=== PATIENT | male | born 1955 ===

== ENCOUNTER → 2017-10-17 15:37 | Outpatient (CLI) | payer OTHER, SELFPAY ==
[2017-10-19 14:56] LABS: PSA Free % 23 % (calc) (> 25); PSA, Total 4.6 ng/mL (< 4.1)
== END ==
PROVIDERS: PCP Family Medicine; Visit Provider Family Medicine
DX: R97.20 Elevated prostate specific antigen [PSA] (principal)
CPT/HCPCS: 36415; 84153; 84154

== ENCOUNTER → 2018-07-04 13:27 | Outpatient (CLI) | payer SELFPAY | PROVIDERS: Family Provider Family Medicine; PCP Family Medicine; Visit Provider Urology | DX: R97.20 Elevated prostate specific antigen [PSA] (principal) | CPT/HCPCS: 36415; 84153 ==

== ENCOUNTER 2019-04-07 06:46 | Day surgery (SDC) | payer OTHER, SELFPAY ==
[2019-04-01 13:19] VITALS: BMI 25.1
[2019-04-07] VITALS (8 sets, daily range): BP systolic 100–137; BP diastolic 61–83; PULSE 56–72; RESP 12–16; TEMP 36.2–36.6; O2SAT 96–99; BMI 24.2
[2019-04-07] MEDS: LACTATED RINGERS 1,000 ML 42 ML IV (07:27)
--- NOTE | 2019-04-07 07:45 | PM.HP.1 ---
History of Present Illness History of Present Illness Date Patient Seen: 04/07/19 Time Patient Seen: 07:46 Chief complaint: 00615 Narrative: Patient is a gentleman here for a pair of a left inguinal hernia Patient History Medical History Healthy adult (Acute) Surgical History Hx of hernia repair (Acute) Hx of knee surgery (Acute) Hx of rotator cuff surgery (Acute ~2013) Family & Social History Family History Mother Cancer Social History: household members spouse Tobacco & Substance use: Smoking Status Never smoker alcohol intake never Substance Use Type does not use Meds Home Medications and Allergies Home Medications Medication Instructions Recorded Confirmed Type No Known Home Medications 01/22/19 04/07/19 History Allergies Allergy/AdvReac Type Severity Reaction Status Date / Time Penicillins [PENICILLINS] Allergy Mild rash-25 Verified 04/07/19 07:27 years ago Review of Systems Review of Systems ROS Unobtainable: All systems reviewed & are unremarkable except as noted in HPI and below Exam Vital Signs (past 8 hours): - 04/07/19 07:10 Temperature 97.6 F Pulse Rate 60 Respiratory Rate 16 Blood Pressure 137/83 Pulse Oximetry 99 Oxygen Delivery Method Room Air Narrative Exam Narrative: No apparent distress. Lungs are clear heart regular rate and rhythm no murmur gallop abdomen is soft nontender without mass. Reducible left inguinal hernia. Assessment & Plan Assessment & Plan narrative: Will repair left inguinal hernia. Risks benefits have been discussed. He appears to understand wishes to proceed
--- NOTE | 2019-04-07 07:48 | PM.PREOP ---
Pre-operative Note Interval Note History & Physical reviewed/Exam performed by Physician: Yes Changes to H&P: No
[2019-04-07] MEDS: CLINDAMYCIN 900 MG/50 ML PIGGYBACK 50 MG IV (08:07)
--- NOTE | 2019-04-07 08:26 | SUR.OPER ---
Supine on padded OR bed, head on pillow, arms secured on padded arm boards at <90 degrees abduction, legs uncrossed with heels padded, safety belt at thigh.
[2019-04-07] MEDS: BUPIVACAINE 0.5% (PF) VIAL 30 ML INJ (08:38)
--- NOTE | 2019-04-07 09:35 | PM.OP.1 ---
Operative Date/Time/Diagnoses Date of procedure: 04/07/19 Time of procedure: 09:35 Pre-op diagnosis: Left inguinal hernia. Reducible. Post-op diagnosis: same (Indirect hernia which contained adhesed colon.) Procedure & Clinicians Procedure: Repair with plug and patch technique Same procedure as scheduled: Yes Indications: Symptomatic left inguinal hernia Surgeon: Tima Gaona Click Yes if Unassisted: Yes Anesthesia Type: General Operative Notes Findings: Indirect hernia Closure Type: primary Specimen(s): none sent Prosthetic devices, grafts, tissues, transplants, or devices: Mesh Estimated Blood Loss (mL): 5 Blood products transfused: none Procedure in detail: The patient was placed supine on the operating room table and underwent general LMA anesthesia. He was prepped and draped in the usual fashion. A transverse incision was made overlying the internal ring and carried down to the level of the external oblique. The external oblique was opened parallel with its fibers through the external ring. The cord structures were elevated. The cremaster was opened proximally and search made for an indirect sac. One was found and from surrounding structures. It was opened and found to have adhesed colon in it. The adhesions were taken down in the colon reduced into the peritoneal cavity. A pursestring of 2 0 soak was placed above this and tied to close the sac. The distal portion was removed.. The floor was examined and was found to be weakened about otherwise intact.. A patch was placed across the floor and tacked at the pubic tubercle, the posterior lamella of the anterior rectus sheath, the ilioinguinal ligament, and superior lateral to the cord. The opening was modified as necessary to prevent tight constriction of the cord. Sutures of 0 Tycron were used to secure the mesh. The external oblique was closed with a running 3 0 Vicryl. The subcu was closed with interrupted 3 0 Vicryl. The skin was closed with a running 4 0 Vicryl subcuticular stitch and Steri-Strips. Dressing was applied, the patient was awakened, and the patient was taken to the recovery area in good condition. Complications: none Post-operative Condition: stable Disposition: PACU Plan for aftercare: Follow-up in the office
[2019-04-07] MEDS: OXYCODONE/ACETAMINOPHEN 5/325 TABLET 1 TAB PO (10:05)
== END 2019-04-07 10:20 | disposition home or self-care (01) ==
PROVIDERS: PCP Family Medicine; Visit Provider Specialist
PROC: (CPT 49505; principal; 2019-04-07 07:45)
DX: K40.90 Unilateral inguinal hernia, without obstruction or gangrene, not specified as recurrent (principal); K66.0 Peritoneal adhesions (postprocedural) (postinfection)
CPT/HCPCS: 49505; C1781; J0330; J1100; J2250; J2405; J2704; J3010

== ENCOUNTER → 2021-10-10 09:53 | Outpatient (CLI) | payer MEDICARE, BC, SELFPAY ==
[2021-10-10 10:40] LABS: Hemoglobin 16.5 g/dL (13.5-17.5); Mean Corpuscular HGB Conc 34.3 % (30-36); Mean Corpuscular Hemoglobin 30.3 PG (26-34); Mean Corpuscular Volume 88.2 fL (80-100); Platelet Count 235 X10^3/uL (150-400); Red Blood Cell Count 5.45 X10^6/uL (4.5-5.9); White Blood Cell Count 6.9 X10^3/uL (4.5-11.0)
[2021-10-10 10:42] LABS: Alanine Aminotransferase 18 IU/L (<50); Albumin Globulin Ratio 1.6 (1.0-2.8); Alkaline Phosphatase 58 U/L (38-126); Aspartate Aminotransferase 28 IU/L (17-59); BUN Creatinine Ratio 17.5 (6-22); Bilirubin Total 2.1 mg/dL (0.2-1.3); Blood Urea Nitrogen 17 mg/dL (9-20); Calcium 9.3 mg/dL (8.4-10.2); Carbon Dioxide 29 mmol/L (22-32); Chloride 104 mmol/L (98-107); Cholesterol 208 mg/dL (140-199); Estimated Glomerular Filt Rate > 60 mL/min (>60); Globulin 3.1 g/dL (1.7-4.1); Glucose 123 mg/dL (80-110); HDL Cholesterol 63 mg/dL (40-60); HEMOLYSIS < 15 (0-50); LDL Cholesterol Calculated 120 mg/dL (<100); Potassium 4.7 mmol/L (3.4-5.1); Sodium 140 mmol/L (137-145); Total Protein 8.1 g/dL (6.3-8.2); Triglycerides 125 mg/dL (35-150)
[2021-10-10 11:13] LABS: Prostate Specific Antigen 4.16 ng/mL (0.10-4.00); TSH w/ Reflex to FT4 1.37 uIU/mL (0.47-4.68)
== END ==
PROVIDERS: PCP Internal Medicine; Referring Provider Internal Medicine; Visit Provider Internal Medicine
DX: I10 Essential (primary) hypertension (principal); Z86.19 Personal history of other infectious and parasitic diseases; E78.2 Mixed hyperlipidemia; Z87.898 Personal history of other specified conditions; Z12.5 Encounter for screening for malignant neoplasm of prostate
CPT/HCPCS: 36415; 80053; 80061; 84153; 84443; 85027; 87522; G0103

== ENCOUNTER → 2022-11-02 08:46 | Outpatient (CLI) | payer MEDICARE, BC, SELFPAY ==
[2022-11-02 10:09] LABS: Alanine Aminotransferase 19 IU/L (<50); Albumin 4.4 g/dL (3.5-5.0); Albumin Globulin Ratio 1.8 (1.0-2.8); Alkaline Phosphatase 52 U/L (38-126); Aspartate Aminotransferase 23 IU/L (17-59); BUN Creatinine Ratio 16.8 (6-22); Blood Urea Nitrogen 16 mg/dL (9-20); Calcium 9.3 mg/dL (8.4-10.2); Carbon Dioxide 31 mmol/L (22-32); Chloride 102 mmol/L (98-107); Cholesterol 179 mg/dL (140-199); Estimated Glomerular Filt Rate > 60 mL/min (>60); Globulin 2.4 g/dL (1.7-4.1); Glucose 77 mg/dL (80-110); HDL Cholesterol 55 mg/dL (40-60); HEMOLYSIS < 15 (0-50); LDL Cholesterol Calculated 113 mg/dL (<100); Potassium 4.3 mmol/L (3.4-5.1); Sodium 140 mmol/L (137-145); Total Protein 6.8 g/dL (6.3-8.2); Triglycerides 57 mg/dL (35-150)
== END ==
PROVIDERS: PCP Internal Medicine; Referring Provider Internal Medicine; Visit Provider Internal Medicine
DX: E78.2 Mixed hyperlipidemia (principal); I10 Essential (primary) hypertension; Z86.19 Personal history of other infectious and parasitic diseases; Z87.438 Personal history of other diseases of male genital organs; N40.0 Benign prostatic hyperplasia without lower urinary tract symptoms
CPT/HCPCS: 36415; 80053; 80061; 84153

== ENCOUNTER → 2023-10-11 09:57 | Outpatient (CLI) | payer MEDICARE, OTHER, SELFPAY ==
[2023-10-11 10:27] LABS: Appearance Urine UA CLEAR; Bilirubin Urine UA NEGATIVE (NEGATIVE); Color Urine UA YELLOW; Glucose Urine UA NEGATIVE (Negative); Ketones Urine UA NEGATIVE (NEGATIVE); Leukocyte Esterase Urine UA TRACE (NEGATIVE); Nitrite Urine UA NEGATIVE (Negative); Occult Blood Urine UA 3+ (Negative); Protein Urine UA NEGATIVE (Negative); Specific Gravity Urine UA <=1.005 (1.000-1.035); Urobilinogen Urine UA 0.2 E.U./dL (0.2); pH Urine UA 5.5 (4.5-8.0)
[2023-10-11 10:34] LABS: Bacteria Urine None Seen; Culture Indicated Urine Specimen Cultured; RBC Urine None Seen (0-5/HPF); Squamous Epithelial Cell Urine 0-1 /HPF (0-5/HPF); Urine Volume 10mL (spun); WBC Urine 1-5/HPF (0-5/HPF)
== END ==
PROVIDERS: PCP Internal Medicine; Referring Provider Internal Medicine; Visit Provider Internal Medicine
DX: R31.9 Hematuria, unspecified (principal)
CPT/HCPCS: 81001; 87086

== ENCOUNTER → 2023-11-01 10:33 | Outpatient (CLI) | payer MEDICARE, OTHER, SELFPAY ==
[2023-11-01 12:09] LABS: BUN Creatinine Ratio 15.6 (6-22); Blood Urea Nitrogen 14 mg/dL (9-20); Calcium 9.5 mg/dL (8.4-10.2); Carbon Dioxide 30 mmol/L (22-32); Chloride 105 mmol/L (98-107); Estimated Glomerular Filt Rate > 60 mL/min (>60); Glucose 99 mg/dL (80-110); HEMOLYSIS < 15 (0-50); Potassium 5.1 mmol/L (3.4-5.1); Sodium 140 mmol/L (137-145)
== END ==
PROVIDERS: PCP Internal Medicine; Referring Provider Urology; Visit Provider Urology
DX: R31.0 Gross hematuria (principal)
CPT/HCPCS: 36415; 80048

== ENCOUNTER → 2023-11-04 08:53 | Outpatient (CLI) | payer MEDICARE, OTHER, SELFPAY ==
--- NOTE | 2023-11-04 08:55 | DI.MRI.S_ITS ---
PROCEDURE: MR PELVIC PROSTATE PROTOCOL INDICATIONS: Elevated PSA abnormal prostate exam TECHNIQUE: Coronal HASTE, axial T1 FSE with fat saturation, 3-plane nonbreath-hold T2 FSE. After the administration of contrast, dynamic axial, delayed axial and coronal VIBE or 2-D FLASH with fat saturation through the pelvis. Diffusion weighted imaging and ADC was performed. COMPARISON: [facility], CT, CT ABDOMEN PELVIS WO/W CON, 11/04/2023, 10:04. FINDINGS: Image quality: Diffusion weighted and dynamic contrast enhanced images are diagnostic. Prostate: 4.4 x 3.5 x 3.8 cm. Estimated volume is 30.4. Dominant lesion involving most of the right gland centered in the posterolateral peripheral zone, extending to the left gland, measuring 2.7 x 2.4 x 2.4 cm (5/13, 8/13). T2 score 5. DCE score positive. DWI score 5. PI-RADS 5. There is suspected extracapsular disease in the expected location of the neurovascular bundle this measures under 5 mm. The seminal vesicles appear clear. Transitional zone heterogenous nodules are present, either well encapsulated or mostly encapsulated, compatible with PI-RADS 1 or 2 likely BPH nodules. Genitourinary system: Bladder is distended. Bowel and peritoneum: Prominent rectal gas. No pathologic ascites Nodes and vessels: There are prominent pelvic nodes not enlarged by size criteria, consider prostate PET to further evaluate in the setting of probable prostate malignancy. A density is seen in the left inguinal canal measuring 1.4 cm in short axis, correlate with any prior hernia repair. Soft tissues: Unremarkable pelvic wall Bones: Degenerative changes. IMPRESSION: PI-RADS 5 lesion as described above, involving most of the right gland and parts of the left gland. There is suspected small amount of extracapsular disease in the expected location of the neurovascular bundle. The seminal vesicles are clear on this study. Small pelvic lymph nodes are not enlarged by size criteria, consider prostate PET-CT to further evaluate in the setting of probable malignancy. A density in the left inguinal canal may represent sequelae of hernia repair. Correlate with surgical history. Other findings above. Dictated by: Luis Daniel Stanford M.D. on 11/05/2023 at 9:46 Approved by: Luis Daniel Stanford M.D. on 11/05/2023 at 9:52
--- NOTE | 2023-11-04 08:55 | DI.CT.S_ITS ---
PROCEDURE: CT ABDOMEN PELVIS WO/W CON INDICATIONS: Gross hematuria microscopic hematuria secondhand smoke expos TECHNIQUE: Optional 5 mm thick noncontrast images acquired from the diaphragm to the symphysis pubis. After the administration of intravenous contrast, 5 mm thick images acquired from the diaphragm to the symphysis pubis after a 10-minute delay. 2 mm thick coronal and sagittal reformats were then performed of the kidneys and ureters. For radiation dose reduction, the following was used: automated exposure control, adjustment of mA and/or kV according to patient size. COMPARISON: None. FINDINGS: Image quality: Diagnostic Lower chest: Lung base scarring/atelectasis. Cardiomegaly. Partially seen coronary calcifications. Liver: Unremarkable Gallbladder and biliary system: Cholelithiasis, ectatic biliary tree, with tapering distally, likely senescent. CBD measures 6 mm. Pancreas: Mildly ectatic duct at the head, no discrete mass or calcified stone identified. Spleen: Nonenlarged Adrenals: Mild adrenal thickening bilaterally Kidneys: The noncontrast phase of this study has excreted contrast likely from prior MR contrast administration, which limits evaluation. In the right renal pelvis, there is of 2.4 x 2 x 1.8 cm stone. Internal density is over 1000 Hounsfield units. There are renal cysts. Subcentimeter lesions are too small to characterize. Likely hyperdense cyst is seen at the left lower pole, Bosniak 2 per size criteria. There is mild right renal pelvocaliectasis with urothelial thickening (5/74, to 78). No solid renal mass identified. No filling defects within the ureters otherwise. Vessels and lymph nodes: The main portal vein appears patent. No abdominal aortic aneurysm. No pathologic lymph nodes by size criteria. Bowel and peritoneum: No evidence of small bowel obstruction. No pathologic ascites or drainable abscess Body wall: Unremarkable Pelvis: Bladder is unremarkable. There is heterogeneous prostate enhancement with dystrophic calcifications, better assessed on MRI. Bones: There are degenerative changes, no acute or suspicious osseous finding. IMPRESSION: Limited evaluation on the noncontrast phase due to excreted contrast from earlier MRI. Within this limitation, there is mild right renal pelvocaliectasis and 2.4 x 2 x 1.8 cm stone within the right renal pelvis. Surrounding urothelial thickening of the renal pelvis is probably reactive, however consider surveillance imaging to exclude any underlying additional filling defect if urologic intervention is pursued. Heterogeneous prostate is better evaluated on MRI. The lower tracts could be better evaluated with cystoscopy in the setting of hematuria. Other findings as above. Approved by: Luis Daniel Stanford M.D. on 11/04/2023 at 17:06
== END ==
LOC: MRI 08:54
PROVIDERS: PCP Internal Medicine; Referring Provider Urology; Visit Provider Urology
DX: N28.1 Cyst of kidney, acquired (principal); N42.9 Disorder of prostate, unspecified; R31.0 Gross hematuria; K80.20 Calculus of gallbladder without cholecystitis without obstruction; R39.89 Other symptoms and signs involving the genitourinary system; N28.89 Other specified disorders of kidney and ureter; N32.89 Other specified disorders of bladder; I51.7 Cardiomegaly; Z77.22 Contact with and (suspected) exposure to environmental tobacco smoke (acute) (chronic); Z87.898 Personal history of other specified conditions
CPT/HCPCS: 72197; 74178; A9579; Q9967

== ENCOUNTER → 2023-11-07 08:35 | Outpatient (CLI) | payer MEDICARE, OTHER, SELFPAY ==
[2023-11-07 10:35] LABS: Aspartate Aminotransferase 30 IU/L (17-59); BUN Creatinine Ratio 12.4 (6-22); Blood Urea Nitrogen 12 mg/dL (9-20); Calcium 9.9 mg/dL (8.4-10.2); Carbon Dioxide 30 mmol/L (22-32); Chloride 105 mmol/L (98-107); Cholesterol 209 mg/dL (140-199); Estimated Glomerular Filt Rate > 60 mL/min (>60); Glucose 92 mg/dL (80-110); HDL Cholesterol 67 mg/dL (40-60); HEMOLYSIS < 15 (0-50); LDL Cholesterol Calculated 125 mg/dL (<100); Potassium 4.9 mmol/L (3.4-5.1); Sodium 139 mmol/L (137-145); Triglycerides 84 mg/dL (35-150)
== END ==
PROVIDERS: PCP Internal Medicine; Referring Provider Internal Medicine; Visit Provider Internal Medicine
DX: R97.20 Elevated prostate specific antigen [PSA] (principal); E78.2 Mixed hyperlipidemia; I10 Essential (primary) hypertension
CPT/HCPCS: 36415; 80048; 80061; 84153; 84450

== ENCOUNTER → 2024-01-30 09:51 | Outpatient (CLI) | payer MEDICARE, OTHER, SELFPAY ==
--- NOTE | 2024-01-30 10:00 | DI.NM.S_ITS ---
PROCEDURE: NM BONE SCAN WHOLE BODY RADIOPHARMACEUTICAL: 22 mCi Tc-99m MDP IV. INDICATIONS: Prostate cancer TECHNIQUE: Delayed whole-body scintigrams were obtained approximately 3-4 hours after intravenous injection of radiotracer. Anterior and posterior views were acquired from vertex to feet. Additional left and right oblique views of the pelvis were obtained. COMPARISON: [facility], CT, CT ABDOMEN PELVIS W CON, 01/30/2024, 11:04. FINDINGS: Degenerative uptake in the shoulders, left knee. Uptake within the mandible and maxilla, probably dental disease. Focal tracer uptake in the inferior pole of the scapula, right greater than left. IMPRESSION: Focal uptake in the inferior pole of the scapula, right greater than left. Consider chest CT for evaluation. Otherwise, degenerative uptake without suspicious uptake. Dictated by: Frank Malone M.D. on 01/30/2024 at 15:18 Approved by: Frank Malone M.D. on 01/30/2024 at 15:20
[2024-01-30 10:38] LABS: Estimated Glomerular Filt Rate > 60 mL/min (>60)
--- NOTE | 2024-01-30 12:00 | DI.CT.S_ITS ---
PROCEDURE: CT ABDOMEN PELVIS W CON INDICATIONS: Prostate cancer TECHNIQUE: After the administration of intravenous contrast, axial sections acquired from the lung bases to the pubic symphysis. Coronal and sagittal reformats were performed. For radiation dose reduction, the following was used: automated exposure control, adjustment of mA and/or kV according to patient size. COMPARISON: [facility], , MR PELVIC PROSTATE PROTOCOL, 11/04/2023, 9:15. FINDINGS: Image quality: Diagnostic. Lower Chest: No significant findings. ABDOMEN: Liver: No solid mass. Gallbladder: Cholelithiasis without wall thickening or adjacent fat stranding to suggest acute cholecystitis. Biliary ducts: No biliary dilation. Pancreas: No ductal dilation. Spleen: Size is within normal limits. Adrenal Glands: No adrenal nodules. Kidneys and Ureters: No hydronephrosis. No solid mass. No complex renal cystic lesion which requires follow up. 2.6 x 1.2 cm stone within the right renal pelvis (896 Hounsfield unit). Mild associated urothelial wall thickening. Stomach and Bowel: Normal colonic caliber, without significant wall thickening. Peritoneum: No abnormal intraperitoneal fluid. No free air. Ventral Wall: No significant ventral hernia. Abdominal Nodes: No retroperitoneal or mesenteric adenopathy by size criteria. Vessels: Aorta and inferior vena cava are normal in size. PELVIS: Pelvic Organs: Enhancement of the peripheral zone of the prostate. Broad-based capsular contact may indicate extraprostatic extension. Bladder: No bladder wall thickening, accounting for underdistention. Pelvic Nodes: No enlarged lymph nodes. Miscellaneous: No inguinal hernias are seen. Left inguinal hernia repair. Bones: No aggressive osseous abnormality. IMPRESSION: Abnormal enhancement of the peripheral zone of the prostate, consistent with primary malignancy. Broad-based capsular contact may indicate extraprostatic extension. No evidence of holland disease or definite metastatic disease. Nonobstructing calcification in the right renal pelvis measuring 2.6 x 1.2 cm, with associated urothelial wall thickening, likely due to inflammatory changes rather than infection. Correlate with urinalysis. Cholelithiasis without wall thickening or adjacent fat stranding to suggest acute cholecystitis. Dictated by: Frank Malone M.D. on 01/30/2024 at 11:41 Approved by: Frank Malone M.D. on 01/30/2024 at 11:44
== END ==
PROVIDERS: Family Medicine; PCP Internal Medicine; Referring Provider Urology; Visit Provider Urology
DX: C61 Malignant neoplasm of prostate (principal); N20.0 Calculus of kidney; K80.20 Calculus of gallbladder without cholecystitis without obstruction
CPT/HCPCS: 36415; 74177; 78306; 82565; A9503; Q9967

== ENCOUNTER → 2024-03-20 08:58 | Outpatient (CLI) | payer MEDICARE, OTHER, SELFPAY ==
[2024-03-20 11:11] LABS: Appearance Urine UA CLEAR; Bilirubin Urine UA NEGATIVE (NEGATIVE); Color Urine UA YELLOW; Glucose Urine UA NEGATIVE (Negative); Ketones Urine UA NEGATIVE (NEGATIVE); Leukocyte Esterase Urine UA 1+ (NEGATIVE); Nitrite Urine UA NEGATIVE (Negative); Occult Blood Urine UA 1+ (Negative); Protein Urine UA NEGATIVE (Negative); Specific Gravity Urine UA <=1.005 (1.000-1.035); Urobilinogen Urine UA 0.2 E.U./dL (0.2)
[2024-03-20 11:33] LABS: Bacteria Urine Occasional (0-1); RBC Urine 1-5/HPF (0-5/HPF); Squamous Epithelial Cell Urine 0-1 /HPF (0-5/HPF); Urine Volume 10mL (spun); WBC Urine 1-5/HPF (0-5/HPF)
[2024-03-20 11:34] LABS: Culture Indicated Urine Cult Not Indicated
== END ==
PROVIDERS: PCP Internal Medicine; Referring Provider Nurse Practitioner; Visit Provider Nurse Practitioner
DX: N20.0 Calculus of kidney (principal)
CPT/HCPCS: 81001

== ENCOUNTER → 2024-04-23 09:28 | Outpatient (CLI) | payer MEDICARE, OTHER, SELFPAY ==
[2024-04-23 10:22] LABS: Appearance Urine UA CLEAR; Bilirubin Urine UA NEGATIVE (NEGATIVE); Color Urine UA YELLOW; Glucose Urine UA NEGATIVE (Negative); Ketones Urine UA NEGATIVE (NEGATIVE); Leukocyte Esterase Urine UA TRACE (NEGATIVE); Nitrite Urine UA NEGATIVE (Negative); Occult Blood Urine UA 1+ (Negative); Protein Urine UA NEGATIVE (Negative); Specific Gravity Urine UA <=1.005 (1.000-1.035); Urobilinogen Urine UA 0.2 E.U./dL (0.2); pH Urine UA 5.5 (4.5-8.0)
[2024-04-23 10:36] LABS: Bacteria Urine None Seen; Culture Indicated Urine Cult Not Indicated; RBC Urine 1-5/HPF (0-5/HPF); Squamous Epithelial Cell Urine None Seen (0-5/HPF); Urine Volume 10mL (spun); WBC Urine 0-1/HPF (0-5/HPF)
== END ==
PROVIDERS: PCP Internal Medicine; Referring Provider Nurse Practitioner; Visit Provider Nurse Practitioner
DX: N20.0 Calculus of kidney (principal)
CPT/HCPCS: 81001

== ENCOUNTER → 2024-05-07 11:29 | Outpatient (CLI) | payer MEDICARE, OTHER, SELFPAY | PROVIDERS: PCP Internal Medicine; Visit Provider Urology | DX: R97.20 Elevated prostate specific antigen [PSA] (principal); R31.0 Gross hematuria | CPT/HCPCS: 87086 ==

== ENCOUNTER → 2024-05-19 09:34 | Outpatient (CLI) | payer MEDICARE, OTHER, SELFPAY ==
[2024-05-19 10:48] LABS: Prostate Specific Antigen 2.21 ng/mL (0.10-4.00)
== END ==
PROVIDERS: PCP Internal Medicine; Referring Provider Urology; Visit Provider Urology
DX: C61 Malignant neoplasm of prostate (principal); R97.20 Elevated prostate specific antigen [PSA]
CPT/HCPCS: 36415; 84153

== ENCOUNTER 2024-05-20 20:27 | Emergency (ER) | payer MEDICARE, OTHER, SELFPAY ==
--- NOTE | 2024-05-20 20:32 | EKG_ITS ---
[address] [address] Test Date: 2024-05-20 Pat Name: Pedro Ruggiero Department: Room: Gender: Male [employer] Worker: PATRICIA : 1955 Requested By: Order Number: [id number] Reading MD: Dawit Perez Measurements Intervals [place] Rate: 60 P: 50 DE: 212 QRS: 27 QRSD: 92 T: 29 QT: 422 QTc: 422 Interpretive Statements Sinus rhythm with 1st degree AV block with premature atrial complexes Incomplete right bundle branch block Possible Inferior infarct , age undetermined Electronically Signed On 05-22-2024 18:32:57 PST by Dawit Perez
[2024-05-20 20:35] VITALS: BP 195/91; PULSE 62; RESP 16; TEMP 36.6; O2SAT 100; BMI 23.6
--- NOTE | 2024-05-20 20:43 | DI.RAD.S_ITS ---
PROCEDURE: XR CHEST 1V INDICATIONS: chest pain TECHNIQUE: One view of the chest was acquired. COMPARISON: None. FINDINGS: Surgical changes and devices: None. Lungs and pleura: Lungs are clear. No pleural effusions or pneumothorax. Mediastinum: Mediastinal contours appear normal. Heart size is normal. Bones and chest wall: No suspicious bony lesions. Overlying soft tissues appear unremarkable. IMPRESSION: No acute cardiopulmonary abnormality is seen. Dictated by: Frank Malone M.D. on 05/20/2024 at 23:24 Approved by: Frank Malone M.D. on 05/20/2024 at 23:24
[2024-05-20] MEDS: ASPIRIN 81 MG CHEW TAB 324 MG PO (20:49)
[2024-05-20 20:53] LABS: Add Manual Diff / Slide Review NO; Basophils Absolute Auto 100 /uL (0-100); Basophils Percent Auto 1.1 % (0-2); Eosinophils Absolute Auto 300 /uL (0-450); Eosinophils Percent Auto 3.1 % (2-4); Hematocrit 44.3 % (41-53); Hemoglobin 14.8 g/dL (13.5-17.5); Lymphocytes Absolute Auto 2500 /uL (1100-4500); Lymphocytes Percent Auto 30.8 % (25-40); Mean Corpuscular HGB Conc 33.4 % (30-36); Mean Corpuscular Hemoglobin 29.9 PG (26-34); Mean Corpuscular Volume 89.3 fL (80-100); Monocytes Absolute Auto 600 /uL (0-900); Monocytes Percent Auto 7.3 % (3-14); Neutrophils Absolute Auto 4700 /uL (1500-7000); Neutrophils Percent Auto 57.7 % (50-75); Platelet Count 280 X10^3/uL (150-400); Red Blood Cell Count 4.97 X10^6/uL (4.5-5.9); Red Cell Distribution Width 12.7 % (11.6-14.8); White Blood Cell Count 8.2 X10^3/uL (4.5-11.0)
[2024-05-20 21:00] LABS: INR 1.1 (0.9-1.3); Prothrombin Time 12.1 SECONDS (9.4-12.5)
[2024-05-20 21:03] LABS: PTT Partial Thromboplastin Tim 31 SECONDS (25.1-36.5)
[2024-05-20 21:05] LABS: Alanine Aminotransferase 22 IU/L (<50); Albumin 4.5 g/dL (3.5-5.0); Albumin Globulin Ratio 1.5 (1.0-2.8); Alkaline Phosphatase 53 U/L (38-126); Aspartate Aminotransferase 33 IU/L (17-59); BUN Creatinine Ratio 15.5 (6-22); Bilirubin Total 1.4 mg/dL (0.2-1.3); Blood Urea Nitrogen 18 mg/dL (9-20); Calcium 9.6 mg/dL (8.4-10.2); Carbon Dioxide 28 mmol/L (22-32); Chloride 102 mmol/L (98-107); Creatine Kinase 72 U/L (55-170); Estimated Glomerular Filt Rate > 60 mL/min (>60); Globulin 3.1 g/dL (1.7-4.1); Glucose 137 mg/dL (80-110); HEMOLYSIS 29 (0-50); Lipase 97 U/L (23-300); Potassium 3.9 mmol/L (3.4-5.1); Sodium 136 mmol/L (137-145); Total Protein 7.6 g/dL (6.3-8.2)
[2024-05-20 21:16] LABS: NT-proBNP (BNP-Adult 18+) 254 pg/mL (<125); Troponin I < 0.012 ng/mL (0.01-0.034)
[2024-05-20 23:06] VITALS: BP 186/96; PULSE 52; RESP 17; O2SAT 100
[2024-05-20 23:34] LABS: Troponin I < 0.012 ng/mL (0.01-0.034)
[2024-05-20 23:44] VITALS: BP 179/89; PULSE 50; RESP 17; O2SAT 99
[2024-05-21 01:19] VITALS: BP 169/95; PULSE 51; RESP 16; O2SAT 99
--- NOTE | 2024-05-21 02:18 | ED.CHESTPAIN ---
HPI - Chest Pain General Chief Complaint: Chest Pain Stated Complaint: HBP, chest pain Time Seen by Provider: 05/21/24 02:18 Source: patient, family, RN notes reviewed and old records reviewed Mode of arrival: Family Vehicle Limitations: no limitations History of Present Illness HPI narrative: 68-year-old male history of prostate cancer currently on injection hormone blockers. Patient presents with complaint of elevated blood pressure for the past week. Patient states he had kidney surgery about 2 weeks ago for kidney stone retrieval. Has been doing very well but was checking blood pressure regularly postsurgically just to keep an eye on it. He has had elevated blood pressures in the past but has always wash them and they have improved he has never been on any medication. He states he has been getting averages of 160s and sometimes 170s with a diastolic of 100 and slowly creeping up over the past several days. He denies any fevers but does get hot flashes from his hormone blockers. Denies any active chest pain, no shortness of breath, no nausea no vomiting states had a mild headache. States he has been active without any issues with exercise. States he has not had any swelling in his extremities. No issues with bowel movements. States he has been urinating without any issue. States no prescription medications currently. Has had prior hernia repair and shoulder surgery he has never had any cardiac catheterization. Reports allergy to penicillin. No tobacco, alcohol or recreational drugs. Has not appointment this Sunday with Dr. Mayer to follow up his blood pressure. Notes family history brother has had hypertension for years but denies any other cardiac history or disease. Patient is accompanied by his . Related Data Previous Rx's Medication Instructions Recorded lisinopril 10 mg tablet 10 mg PO DAILY #10 tabs 05/21/24 Allergies Allergy/AdvReac Type Severity Reaction Status Date / Time Penicillins [PENICILLINS] AdvReac Mild rash-25 Verified 05/20/24 20:35 years ago Review of Systems Review of Systems ROS Unobtainable: All systems reviewed & are unremarkable except as noted in HPI and below Patient History Medical History Prostate cancer History of gross hematuria Right renal stone Elevated PSA Secondhand smoke exposure Abnormal prostate exam Asymptomatic microscopic hematuria Gross hematuria History of asthma History of elevated PSA History of hepatitis C Mixed hyperlipidemia Essential hypertension Hepatitis C (~1999) Surgical History Anesthesia Hx of knee surgery Hx of rotator cuff surgery (~2012) Hx of hernia repair Family History Mother Cancer Father Thyroid disorder Kidney stones Social History marital status: details: , 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 No JVD. No edema. RESPIRATORY: Breath sounds equal bilaterally, no wheezes rales or rhonchi. ABDOMEN: Soft, nontender. Normoactive bowel sounds all 4 quadrants. No guarding or rebound, rigidity, no mass : No CVA tenderness EXTREMITIES: Normal range of motion, no clubbing or edema. Neurovascularly intact NEUROLOGICAL: Cranial nerves II through XII grossly intact. Moving all extremities SKIN: Warm, dry, no petechiae, no rashes or lesions. Initial Vital Signs Initial Vital Signs: Vital Signs Temperature 97.9 F 05/20/24 20:35 Pulse Rate 62 05/20/24 20:35 Respiratory Rate 16 05/20/24 20:35 Blood Pressure 195/91 H 05/20/24 20:35 Pulse Oximetry 100 05/20/24 20:35 Oxygen Delivery Method Room Air 05/20/24 20:35 Course Orders Ordered: ED Orders 05/20/24 22:57 Troponin I Stat Discontinued Medications Aspirin (Aspirin 81 Mg Chew Tab) 324 mg PO NOW ONE Stop: 05/20/24 20:43 Last Admin: 05/20/24 20:49 Dose: 324 mg Documented By: NATY Lisinopril (Lisinopril 10 Mg Tablet) 10 mg PO NOW ONE Stop: 05/21/24 02:39 Last Admin: 05/21/24 02:49 Dose: 10 mg Documented By: VASHTI Vital Signs Vital signs: Vital Signs - 8 hr 05/20/24 23:44 05/21/24 01:19 05/21/24 02:49 Pulse Rate 50 L 51 L Respiratory Rate 17 16 Blood Pressure 179/89 H 169/95 H 169/95 H Pulse Oximetry 99 99 Oxygen Delivery Method Room Air Room Air MDM - Chest Pain Lab Data 05/20/24 20:47 05/20/24 20:47 Labs: Lab Results 05/20/24 05/20/24 Range/Units 20:47 22:57 WBC 8.2 (4.5-11.0) X10^3/uL RBC 4.97 (4.5-5.9) X10^6/uL Hgb 14.8 (13.5-17.5) g/dL Hct 44.3 (41-53) % MCV 89.3 (80-100) fL MCH 29.9 (26-34) PG MCHC 33.4 (30-36) % RDW 12.7 (11.6-14.8) % Plt Count 280 (150-400) X10^3/uL Neut % (Auto) 57.7 (50-75) % Lymph % (Auto) 30.8 (25-40) % Mason % (Auto) 7.3 (3-14) % Eos % (Auto) 3.1 (2-4) % Baso % (Auto) 1.1 (0-2) % Neut # (Auto) 4700 (9128-6035) /uL Lymph # (Auto) 2500 (3389-0331) /uL Mason # (Auto) 600 (0-900) /uL Eos # (Auto) 300 (0-450) /uL Baso # (Auto) 100 (0-100) /uL PT 12.1 (9.4-12.5) SECONDS INR 1.1 (0.9-1.3) APTT 31 (25.1-36.5) SECONDS Sodium 136 L (137-145) mmol/L Potassium 3.9 (3.4-5.1) mmol/L Chloride 102 (98-107) mmol/L Carbon Dioxide 28 (22-32) mmol/L BUN 18 (9-20) mg/dL Creatinine 1.16 (0.66-1.25) mg/dL Estimated GFR > 60 (>60) mL/min BUN/Creatinine Ratio 15.5 (6-22) Glucose 137 H (80-110) mg/dL Calcium 9.6 (8.4-10.2) mg/dL Magnesium 2.0 (1.6-2.3) mg/dL Total Bilirubin 1.4 H (0.2-1.3) mg/dL AST 33 (17-59) IU/L ALT 22 (<50) IU/L Alkaline Phosphatase 53 (38-126) U/L Total Creatine Kinase 72 (55-170) U/L Troponin I < 0.012 < 0.012 (0.01-0.034) ng/mL NT-Pro-B Natriuret Pep 254 H (<125) pg/mL Total Protein 7.6 (6.3-8.2) g/dL Albumin 4.5 (3.5-5.0) g/dL Globulin 3.1 (1.7-4.1) g/dL Albumin/Globulin Ratio 1.5 (1.0-2.8) Lipase 97 (23-300) U/L Imaging Data Chest x-ray: Radiologist's Impression: [place] [address] XRay Report Signed Patient: Pedro Ruggiero MR#: [id number] : 1955 Acct:[id number] Age/Sex: 68 / M Date of Service: 05/20/24 Loc: ED Accession Number: [id number] Procedure: XR chest 1V Ordering Provider: Thelma Rodriguez D.O. PROCEDURE: XR CHEST 1V INDICATIONS: chest pain TECHNIQUE: One view of the chest was acquired. COMPARISON: None. FINDINGS: Surgical changes and devices: None. Lungs and pleura: Lungs are clear. No pleural effusions or pneumothorax. Mediastinum: Mediastinal contours appear normal. Heart size is normal. Bones and chest wall: No suspicious bony lesions. Overlying soft tissues appear unremarkable. IMPRESSION: No acute cardiopulmonary abnormality is seen. Dictated by: Frank Malone M.D. on 05/20/2024 at 23:24 Approved by: Frank Malone M.D. on 05/20/2024 at 23:24 ECG Data Attestation: I personally reviewed and interpreted this ECG as follows: Prior ECG tracings: not available for review Interpretation: Sinus rhythm first-degree AV block, premature atrial complexes rate of 60 IN 212 QRS 80 92 QTC of [address] elevation appreciated incomplete right bundle-branch. No priors for comparison. MDM Narrative Medical decision making narrative: 68-year-old male reports BP elevated for the past 6-8 days was 170/104 days ago for the past few days. Noted chest pain and nursing staff but denies to myself. States he has had little bit of mild headache. Has had some intermittently elevated blood pressures in the past but has been monitored and never started on medication. Has been trending upwards over the past several days to week does have intermittent blood pressures in the 160s in October of 2022 as well as October in November of 2023 some for multiple dates in a row. Only other new changes he was recently been started on hormonal black or for prostate cancer and had kidney stone retrieval 2 weeks ago. Chest x-ray shows no acute change EKG shows sinus rhythm with first-degree AV block incomplete right bundle. White count 8.2 hemoglobin of 14 platelets of 280. Coags are negative sodium is 136 potassium 3.9, chloride 102 CO2 is 28 BUN 18 creatinine is 1.16 glucose is 137 calcium is 9.6 Mag 2, bilirubin is 1.4 AST is 33 ALT is 22 alk-phos is 53 total CK is 72 troponins less than 0.012 with a repeat troponin less than 0.012 and a BNP of 254. Lipase is 97. Discussed with patient discussed watchful waiting and follow up with primary care he would like to start dose of blood pressure medication. He has follow up this week with his primary care so we will give a short course of medication 1st dose was given this evening with return precautions. Discharge Plan Departure Patient Disposition: Home Clinical Impression: Hypertension Instructions: Essential Hypertension Activity Restrictions/Additional Instructions: Please follow up with Dr. Mayer at your appointment. Your blood pressure has been elevated but trending down words here in the department you have been given a small dose of blood pressure medication. You can continue taking 1 tablet daily. A prescription is included in your paperwork. You may not need permanent blood pressure medication talk with Dr. Mayer and continue to monitor your blood pressure in the meantime to see if you should continue this or stop your medication. I hope you continue to feel improved please return if you have any recurrent chest pain, shortness of breath, headaches, sudden vision changes, difficulty with speech, persistent vomiting or other new or concerning changes. Prescriptions: New lisinopril 10 mg tablet 10 mg PO DAILY Qty: 10 0RF Referrals: Terry Mayer MD [Primary Care Provider] - Stand Alone Forms: Patient Portal/API/Survey
[2024-05-21 02:49] VITALS: BP 169/95
[2024-05-21] MEDS: lisinopriL 10 MG TABLET PO (02:49)
== END 2024-05-21 02:54 | disposition home or self-care (01) ==
PROVIDERS: Emergency Provider Emergency Medicine; PCP Internal Medicine
DX: I10 Essential (primary) hypertension (principal); R07.9 Chest pain, unspecified
CPT/HCPCS: 36415; 71045; 80053; 82550; 83690; 83735; 83880; 84484; 85025; 85610; 85730; 93005; 99283; 99284

== ENCOUNTER → 2024-05-23 11:22 | Outpatient (CLI) | payer MEDICARE, OTHER, SELFPAY ==
[2024-05-23 12:50] LABS: Blood Urea Nitrogen 15 mg/dL (9-20); Calcium 9.6 mg/dL (8.4-10.2); Carbon Dioxide 29 mmol/L (22-32); Chloride 103 mmol/L (98-107); Estimated Glomerular Filt Rate > 60 mL/min (>60); Glucose 69 mg/dL (80-110); HEMOLYSIS 15 (0-50); Potassium 4.8 mmol/L (3.4-5.1); Sodium 141 mmol/L (137-145)
== END ==
PROVIDERS: PCP Internal Medicine; Referring Provider Internal Medicine; Visit Provider Internal Medicine
DX: I10 Essential (primary) hypertension (principal)
CPT/HCPCS: 36415; 80048

== ENCOUNTER → 2024-06-19 12:21 | Outpatient (CLI) | payer MEDICARE, OTHER, SELFPAY ==
--- NOTE | 2024-06-19 12:24 | DI.RAD.S_ITS ---
PROCEDURE: XR ABDOMEN 1V INDICATIONS: NEPHROLITHIASIS TECHNIQUE: One view of the abdomen acquired. COMPARISON: None. FINDINGS: Stool gas pattern: Normal-no evidence of ileus or obstruction. No free intraperitoneal or extraperitoneal air. No gross evidence of ascites Soft tissues: A 1.7 cm irregular calcification overlying the bladder base appreciated. This either represent prostate or, less likely, bladder calcification. There are 2 calcifications in the left true pelvis 7 mm and 2 mm respectively. They are likely phleboliths but may represent ureteral stones . Organs: No gross evidence for organomegaly. IMPRESSION: Two calcifications left true pelvis more likely phlebolith than ureteral stones. Suspect prostate calcification Dictated by: Devendra Ramires M.D. on 06/20/2024 at 12:35 Approved by: Devendra Ramires M.D. on 06/20/2024 at 12:37
--- NOTE | 2024-06-19 12:24 | DI.US.S_ITS ---
PROCEDURE: US RENAL COMPLETE INDICATIONS: NEPHROLITHIASIS TECHNIQUE: Real-time scanning was performed of the kidneys and bladder, with image documentation. COMPARISON: [facility], CT, CT ABDOMEN PELVIS W CON, 01/30/2024, 11:04. FINDINGS: Kidneys: Kidneys are normal in size. Right kidney measures 9.7 cm long; left kidney measures 10.7 cm long. Right renal cortical thickness is 1.9 cm; left renal cortical thickness is 2.0 cm. Renal cortical echotexture is normal. Mild to moderate right hydronephrosis. No left hydronephrosis. No nephrolithiasis. No suspicious solid mass lesions. Right renal simple cyst measuring 2 cm. Bladder: Pre-void bladder volume is 89 mL. Post-void residual is 38 mL. Pre-void images demonstrate no intraluminal masses or stones. On pre-void images, neither ureteral jets are noted with color Doppler interrogation. (Of note, ureteral jets may not be detectable in up to 25% of cases due to insufficient differences in specific gravity between ureteral and bladder urine). Miscellaneous: No free pelvic fluid. IMPRESSION: 1. [id number] right hydronephrosis. No obstructing stones are seen. 2. No left hydronephrosis. Dictated by: Ben Duong M.D. on 06/19/2024 at 19:21 Approved by: Ben Duong M.D. on 06/19/2024 at 19:23
== END ==
PROVIDERS: PCP Internal Medicine; Referring Provider Nurse Practitioner; Visit Provider Nurse Practitioner
DX: N20.0 Calculus of kidney (principal); N13.30 Unspecified hydronephrosis; N28.1 Cyst of kidney, acquired
CPT/HCPCS: 74018; 76770

== ENCOUNTER → 2024-06-27 12:29 | Outpatient (CLI) | payer MEDICARE, OTHER, SELFPAY ==
--- NOTE | 2024-06-27 12:31 | DI.CT.S_ITS ---
PROCEDURE: CT KIDNEY URETER BLADDER (KUB) INDICATIONS: Prior stone extraction from the right renal pelvis. Persistent pain. TECHNIQUE: Axial sections were acquired from the lung bases to the pubic symphysis. Coronal and sagittal reformats were performed. For radiation dose reduction, the following was used: automated exposure control, adjustment of mA and/or kV according to patient size. COMPARISON: [facility], CT, CT ABDOMEN PELVIS W CON, 01/30/2024, 11:04. FINDINGS: Image quality: Diagnostic. Lower Chest: No significant findings. URINARY: Right Kidney: No stones or hydronephrosis. An exophytic upper pole right renal cortical cyst is again noted, measuring internally slightly above water, previously the case. This has a maximal transverse diameter of 1.7 cm. Right Ureter: No hydroureter. Left Kidney: No stones or hydronephrosis. Left Ureter: No hydroureter. Bladder: Normal wall thickness. No stones. ABDOMEN: Liver: No contour-deforming solid mass. Gallbladder: Previously present 1 cm densely calcified stone is again seen within the gallbladder lumen but there is no evidence of associated acute cholecystitis or biliary obstruction. Biliary ducts: No biliary dilation. Pancreas: No ductal dilation. Spleen: Size is within normal limits. Adrenal Glands: No adrenal nodules. Stomach and Bowel: Normal colonic caliber, without significant wall thickening. Peritoneum: No abnormal intraperitoneal fluid. No free air. Ventral Wall: No hernia. Abdominal Nodes: No enlarged retroperitoneal or mesenteric lymph nodes. Vessels: Aorta and inferior vena cava are normal in size. PELVIS: Pelvic Organs: Unremarkable. Pelvic Nodes: Unremarkable. Miscellaneous: No inguinal hernias are seen. Bones: Unremarkable. IMPRESSION: No obstructing stones or hydronephrosis. 1 cm gallstone within the GB lumen, densely calcified. This has been previously present and is not associated with current inflammation or biliary distension. 1.7 cm stable appearing exophytic right upper pole renal cortical cysts, proteinaceous internal content is presumed. This has not shown abnormal internal or marginal enhancement on prior CT scanning Dictated by: Anibal Peter M.D. on 06/27/2024 at 14:07 Approved by: Anibal Peter M.D. on 06/27/2024 at 14:13
== END ==
PROVIDERS: PCP Internal Medicine; Referring Provider Nurse Practitioner; Visit Provider Nurse Practitioner
DX: N20.0 Calculus of kidney (principal); N28.1 Cyst of kidney, acquired; K80.20 Calculus of gallbladder without cholecystitis without obstruction
CPT/HCPCS: 74176

== ENCOUNTER → 2024-07-21 11:46 | Outpatient (CLI) | payer MEDICARE, OTHER, SELFPAY | PROVIDERS: PCP Internal Medicine; Referring Provider Urology; Visit Provider Urology | DX: C61 Malignant neoplasm of prostate (principal) | CPT/HCPCS: 36415; 84153 ==

== ENCOUNTER → 2024-08-04 09:37 | Outpatient (CLI) | payer MEDICARE, OTHER, SELFPAY ==
[2024-08-05 12:36] LABS: Fecal Immunochemical Test Negative (Negative)
== END ==
PROVIDERS: PCP Internal Medicine; Referring Provider Internal Medicine; Visit Provider Internal Medicine
DX: Z12.11 Encounter for screening for malignant neoplasm of colon (principal)
CPT/HCPCS: 82274

== ENCOUNTER → 2024-10-24 13:10 | Outpatient (CLI) | payer MEDICARE, OTHER, SELFPAY ==
[2024-10-24 14:14] LABS: Prostate Specific Antigen Scrn 0.585 ng/mL (0.1-4.0)
== END ==
PROVIDERS: PCP Internal Medicine; Referring Provider Urology; Visit Provider Urology
DX: Z12.5 Encounter for screening for malignant neoplasm of prostate (principal)
CPT/HCPCS: 36415; G0103

== ENCOUNTER → 2025-04-03 11:18 | Outpatient (CLI) | payer MEDICARE, OTHER, SELFPAY | PROVIDERS: PCP Internal Medicine; Referring Provider Dermatology; Visit Provider Dermatology | DX: L56.2 Photocontact dermatitis [berloque dermatitis] (principal); L93.0 Discoid lupus erythematosus; R21 Rash and other nonspecific skin eruption; L30.8 Other specified dermatitis; L56.4 Polymorphous light eruption; Z79.899 Other long term (current) drug therapy | CPT/HCPCS: 86038 ==